=== PATIENT | male | born 1960 | race Caucasian/White ===

== ENCOUNTER 2016-10-05 09:50 | Emergency (ER) | payer MEDICAID ==
[2016-10-05] MEDS ORDERED: TRAMADOL 50 MG TAB ONE (11:06)
== END 2016-10-05 11:12 | disposition home or self-care (01) ==
LOC: FASTR 09:50
DX: I83.222 Varicose veins of left lower extremity with both ulcer of calf and inflammation (principal); L97.229 Non-pressure chronic ulcer of left calf with unspecified severity; L03.116 Cellulitis of left lower limb; Z79.82 Long term (current) use of aspirin; F17.210 Nicotine dependence, cigarettes, uncomplicated